=== PATIENT | female | born 1985 | race Two or more races ===

== ENCOUNTER 2023-11-10 09:25 | Inpatient (IN) | payer MEDICAID, OTHER ==
[~2023-11-10] VITALS: Ht 149.9 cm; Wt 77.2 kg
[2023-11-10] MEDS ORDERED: ACCU-CHEK COMFORT CURVE STRIP VI ONE (10:30)
[2023-11-10] MEDS ORDERED: SODIUM CHLORIDE 0.9% 1,000 ML IVB ONE (10:45)
[2023-11-10] MEDS ORDERED: InsuLIN REG 1unit/0.01ml Soln (100units/ml) IV ONE (10:45)
[2023-11-10] MEDS ORDERED: MORPHINE SULFATE 4 MG/ML SYR/VIAL IV ONE (10:45)
[2023-11-10] MEDS ORDERED: PANTOPRAZOLE 40 MG/10 ML VIAL INJ IV ONE (10:45)
[2023-11-10] MEDS ORDERED: PROCHLORPERAZINE EDISYLATE 5 MG/ML 2ML VIAL IV ONE (10:45)
[2023-11-10 11:01] LABS: Basophils # (auto) 0.1 10 ^3/uL (0-0.2); Basophils % (auto) 0.4 % (0.0-2.0); Eosinophils # (auto) 0 10 ^3/uL (0-0.8); Eosinophils % (auto) 0.3 % (0.0-7.0); Hematocrit 48.4 % (36.0-46.0); Hemoglobin 16.7 g/dL (12.2-16.2); Lymphocytes # (auto) 2.5 10 ^3/uL (0.4-5.4); Lymphocytes % (auto) 17.3 % (10.0-50.0); Mean Corpuscular Hemoglobin 28.8 pg (28.0-32.0); Mean Corpuscular Hgb Conc. 34.6 g/dL (32.0-36.0); Mean Corpuscular Volume 83.2 fL (80.0-100.0); Monocytes # (auto) 1.4 10 ^3/uL (0-1.3); Monocytes % (auto) 9.4 % (0.0-12.0); Neutrophils # (auto) 10.4 10 ^3/uL (1.6-8.6); Neutrophils % (auto) 72.6 % (37.0-80.0); Nucleated Red Blood Cells % 0.1 %; Red Blood Cells 5.82 10^6/uL (4.0-5.20); White Blood Cell 14.4 10^3/uL (4.4-10.8)
[2023-11-10 11:11] LABS: Chloride 85 mmol/L (98-107); Potassium 2.8 mmol/L (3.5-5.1); Sodium 123 mmol/L (136-145)
[2023-11-10 11:17] LABS: Calcium 9.5 mg/dL (8.7-10.4)
[2023-11-10 11:20] LABS: Anion Gap 10 (5-15); Carbon Dioxide 28 mmol/L (20-30)
[2023-11-10 11:22] LABS: Alkaline Phosphatase 97 U/L (46-116); BUN/Creatinine Ratio 8.6 (10.0-20.0); Blood Urea Nitrogen 7 mg/dL (9-23); Glucose 382 mg/dL (74-106)
[2023-11-10 11:23] LABS: Alanine Aminotransferase 45 U/L (7-40)
[2023-11-10 11:24] LABS: Albumin 4.3 g/dL (3.2-4.8); Aspartate Aminotransferase 19 U/L (13-40); Total Protein 7.2 g/dL (5.7-8.2)
[2023-11-10 12:00] VITALS: PULSE 87; RESP 12; O2SAT 94
[2023-11-10] MEDS ORDERED: POTASSIUM CHLORIDE 40 MEQ, LIDOCAINE 1% (LOCAL ANESTH.) 4 ML in SODIUM CHL 0.9% 250 ML IV ONE (14:30)
[2023-11-10] MEDS ORDERED: POTASSIUM EFFERVESENT TAB 25 MEQ PO ONE (14:30)
[2023-11-10] MEDS ORDERED: DEXTROSE (50%) 50ML SYRG IV PRN (14:45)
[2023-11-10] MEDS ORDERED: NITROGLYCERIN 0.4 MG SL TAB SL PRN (15:00)
[2023-11-10] MEDS ORDERED: MORPHINE SULFATE INJ 2 MG/ml SYRG IV PRN (15:00)
[2023-11-10] MEDS ORDERED: ACETAMINOPHEN 325 MG TAB PO PRN (15:00)
[2023-11-10] MEDS ORDERED: ONDANSETRON HCL 4 MG/2 ML VIAL IV PRN (15:00)
[2023-11-10] MEDS: SODIUM CHLORIDE 0.9% 1,000 ML IV SCH (15:39)
[2023-11-10] MEDS ORDERED: InsuLIN REG 1unit/0.01ml Soln (100units/ml) SC SCH ×2 (17:00→22:00)
[2023-11-10] MEDS: ACCU-CHEK COMFORT CURVE STRIP VI SCH ×2 (17:34→22:06)
[2023-11-10 19:26] LABS: Triglycerides 149 mg/dL (< 150)
[2023-11-10 19:27] LABS: LDL Cholesterol 246 mg/dL (< 100)
[2023-11-10 19:28] LABS: Cholesterol 296 mg/dL (< 200); HDL Cholesterol 41 mg/dL (40-59)
[2023-11-10 20:00] VITALS: TEMP 98.1
[2023-11-10 21:16] VITALS: PULSE 102; RESP 12; O2SAT 97
[2023-11-11] MEDS: SODIUM CHLORIDE 0.9% 1,000 ML IV SCH (01:00)
[2023-11-11 02:00] VITALS: BP 112/77
[2023-11-11] MEDS ORDERED: HYDROcodone-ACET 5/325MG TAB PO ONE (05:00)
[2023-11-11 05:30] LABS: Basophils # (auto) 0 10 ^3/uL (0-0.2); Basophils % (auto) 0.1 % (0.0-2.0); Eosinophils # (auto) 0.1 10 ^3/uL (0-0.8); Hematocrit 43.7 % (36.0-46.0); Hemoglobin 15.3 g/dL (12.2-16.2); Lymphocytes # (auto) 3.3 10 ^3/uL (0.4-5.4); Lymphocytes % (auto) 27.6 % (10.0-50.0); Mean Corpuscular Hemoglobin 29.3 pg (28.0-32.0); Mean Corpuscular Hgb Conc. 34.9 g/dL (32.0-36.0); Monocytes # (auto) 1.3 10 ^3/uL (0-1.3); Monocytes % (auto) 11.1 % (0.0-12.0); Neutrophils # (auto) 7.3 10 ^3/uL (1.6-8.6); Neutrophils % (auto) 60.2 % (37.0-80.0); Nucleated Red Blood Cells % 0.1 %; Red Blood Cells 5.21 10^6/uL (4.0-5.20); Red Cell Distribution Width 12.9 % (11.8-14.3); White Blood Cell 12.1 10^3/uL (4.4-10.8)
[2023-11-11 05:35] LABS: Alanine Aminotransferase 38 U/L (7-40); Alkaline Phosphatase 83 U/L (46-116); Anion Gap 6 (5-15); Calcium 8.9 mg/dL (8.7-10.4); Carbon Dioxide 29 mmol/L (20-30); Chloride 92 mmol/L (98-107); Glucose 199 mg/dL (74-106); Sodium 127 mmol/L (136-145)
[2023-11-11 05:36] LABS: BUN/Creatinine Ratio 9.7 (10.0-20.0); Blood Urea Nitrogen 7 mg/dL (9-23)
[2023-11-11 05:37] LABS: Albumin 3.8 g/dL (3.2-4.8)
[2023-11-11 05:38] LABS: Aspartate Aminotransferase 19 U/L (13-40); Bilirubin, Total 0.6 mg/dL (0.2-1.0); Total Protein 6.4 g/dL (5.7-8.2)
[2023-11-11 06:00] VITALS: PULSE 80; RESP 11; O2SAT 98
[2023-11-11] MEDS ORDERED: ENOXAPARIN SOD 40 MG/0.4 ML SYRINGE SC SCH (10:00)
== END 2023-11-11 07:40 | disposition left against medical advice (07) | DRG 420 ==
LOC: ER 09:25 → EDBD 09:25 → TELE 14:49
PROVIDERS: ADMIT Nurse Practitioner Family; ATTEND Internal Medicine
DX: E10.65 Type 1 diabetes mellitus with hyperglycemia (principal); K80.10 Calculus of gallbladder with chronic cholecystitis without obstruction; K31.84 Gastroparesis; E10.43 Type 1 diabetes mellitus with diabetic autonomic (poly)neuropathy; E66.01 Morbid (severe) obesity due to excess calories; E78.5 Hyperlipidemia, unspecified; E86.0 Dehydration; E87.6 Hypokalemia; Z83.3 Family history of diabetes mellitus; Z79.4 Long term (current) use of insulin; Z88.5 Allergy status to narcotic agent; Z90.710 Acquired absence of both cervix and uterus; Z68.34 Body mass index [BMI] 34.0-34.9, adult
CPT/HCPCS: 36415; 74176; 76705; 80053; 80061; 82010; 82962; 83036; 83605; 83735; 83880; 84132; 84443; 84484; 85025; 93005; 96365; 96375; C9113; G0378; J1815; J2001